=== PATIENT | female | born 1945 ===

== ENCOUNTER 2018-08-25 17:18 | Emergency (ER) | payer OTHER, BC, MEDICAID, MEDICARE ==
[2018-08-25 18:02] VITALS: RESP 18; O2SAT 97; BMI 23.2
[2018-08-25 18:27] LABS: BASO # 0.02 K/mm3 (0.0-2.0); BASO % 0.3 % (0.0-3.0); EOS # 0.2 (0.0-0.7); EOS % 2.5 % (1.5-5.0); HEMOGLOBIN 12.3 g/dL (12.0-16.0); LYMPH # 3.7 (1.2-3.4); LYMPH % 53.2 % (22.0-35.0); MEAN CELL VOLUME 86.7 fl (80.0-105.0); MEAN CORPUSCULAR HEMOGLOBIN 27.8 pg (25.0-35.0); MEAN PLATELET VOLUME 11.3 fl (7.0-11.0); MONO # 0.3 (0.1-0.6); MONO % 4.6 % (1.0-6.0); RBC 4.43 10^6/uL (3.5-6.1); RED CELL DISTRIBUTION WIDTH 12.9 % (11.5-14.5); WHITE BLOOD COUNT 6.9 10^3/uL (4.5-11.0)
[2018-08-25 18:37] LABS: ALB/GLOB RATIO 1.1 (1.1-1.8); ALBUMIN 4.1 g/dL (3.0-4.8); ALT/SGPT 19 U/L (7-56); AST/SGOT 23 U/L (14-36); BLOOD UREA NITROGEN 14 mg/dL (7-21); CALCIUM 9.9 mg/dL (8.4-10.5); GFR NON-AFRICAN AMERICAN > 60
[2018-08-25 18:38] LABS: ACETAMINOPHEN < 10.0 ug/ml (10.0-20.0); SALICYLATE < 1 mg/dL (2.0-20.0)
--- NOTE | 2018-08-25 18:48 | RAD ---
Date of service: 08/25/2018 HISTORY: PEs eval COMPARISON: No prior. FINDINGS: LUNGS: No active pulmonary disease. PLEURA: No significant pleural effusion identified, no pneumothorax apparent. CARDIOVASCULAR: No radiographic findings to suggest acute or significant cardiovascular disease. Incidental Finding(s): Postoperative changes related to sternotomy. Atherosclerotic calcifications identified primarily aortic arch. OSSEOUS STRUCTURES: No significant abnormalities. VISUALIZED UPPER ABDOMEN: Normal. OTHER FINDINGS: None. IMPRESSION: No active disease.
[2018-08-25 18:51] LABS: PH,URINE 6.5 (4.7-8.0); URINE APPEARANCE CLEAR (CLEAR); URINE BILIRUBIN NEGATIVE (NEGATIVE); URINE BLOOD NEGATIVE (NEGATIVE); URINE COLOR LIGHT YELLOW (YELLOW); URINE GLUCOSE (UA) NEGATIVE (NEGATIVE); URINE LEUKOCYTE ESTERASE SMALL Leu/uL (NEGATIVE); URINE PROTEIN NEGATIVE mg/dL (<30 mg/dL); URINE UROBILINOGEN 0.2 E.U./dL (<1 E.U./dL)
[2018-08-25 18:59] LABS: URINE EPITHELIAL CELLS 0 - 2 /hpf (0-5)
[2018-08-25 19:10] LABS: BARBITURATES, UR NEGATIVE (NEGATIVE); BENZODIAZEPINES, UR POSITIVE (NEGATIVE); OPIATES, UR NEGATIVE (NEGATIVE); PHENCYCLIDINE, UR NEGATIVE (NEGATIVE)
--- NOTE | 2018-08-25 19:11 | CARD ---
APPROVED REPORT Date of service: 08/25/2018 EKG Measurement Heart [id number] <Conclusion> Normal sinus rhythm Possible Left atrial enlargement Anteroseptal infarct, age undetermined T wave abnormality, consider lateral ischemia Abnormal ECG
--- NOTE | 2018-08-25 19:11 | ED PDOC ---
Arrival/HPI - General Chief Complaint: Psychiatric Evaluation Time Seen by Provider: 08/25/18 17:23 Historian: Patient - History of Present Illness Narrative History of Present Illness (Text): 08/25/18 19:08 73-year-old female presents today brought in by her [id number] for psychiatric evaluation. Her [id number] states that over the past month the patient has not been taking her medications as she should be and states she has been acting strange. She states that the patient lives alone and has been found wandering around her. Patient was seen by the psychiatrist today and was advised to come into the emergency room for psychiatric evaluation. The patient denies any complaints. She denies suicidal or homicidal ideation. No other complaints Past Medical History - Provider Review Nursing Documentation Reviewed: Yes - Infectious Disease Hx of Infectious Diseases: None - Cardiac Hx Cardiac Disorders: Yes Hx Hypertension: Yes - Pulmonary Hx Respiratory Disorders: No - Neurological Hx Neurological Disorder: No - HEENT Hx HEENT Disorder: No - Renal Hx Renal Disorder: No - Endocrine/Metabolic Hx Endocrine Disorders: Yes Hx Hypothyroidism: Yes - Hematological/Oncological Hx Blood Disorders: Yes Hx Anemia: Yes (IRON DEF ANEMIA) - Integumentary Hx Dermatological Disorder: No - Musculoskeletal/Rheumatological Hx Musculoskeletal Disorders: Yes Hx Arthritis: Yes Hx Fractures: Yes - Gastrointestinal Hx Gastrointestinal Disorders: No - Genitourinary/Gynecological Hx Genitourinary Disorders: Yes Hx Urinary Tract Infection: Yes - Psychiatric Hx Psychophysiologic Disorder: Yes Hx Depression: Yes Hx Substance Use: No - Surgical History Hx Coronary Artery Bypass Graft: Yes - Anesthesia Hx Anesthesia: Yes Hx Anesthesia Reactions: No Hx Malignant Hyperthermia: No - Suicidal Assessment Feels Threatened In Home Enviroment: No Family/Social History - Physician Review Nursing Documentation Reviewed: Yes Family/Social History: Unknown Family HX Smoking Status: Never Smoked Hx Alcohol Use: No Hx Substance Use: No Allergies/Home Meds Allergies/Adverse Reactions: Allergies dicyclomine [From Bentyl] Allergy (Severe, Verified 08/25/18 14:43) NAUSEA sulfamethoxazole [From Bactrim] Allergy (Severe, Verified 08/25/18 14:43) Hives Bactrim DS trimethoprim [From Bactrim] Allergy (Severe, Verified 08/25/18 14:43) Hives Bactrim DS green vegetables Allergy (Uncoded 08/25/18 17:28) RASH Home Medications: Home Meds Medication Instructions Recorded Confirmed Atorvastatin [Lipitor] 10 mg PO HS 11/26/16 08/25/18 Aspirin [Ecotrin] 81 mg PO DAILY 06/04/17 08/25/18 Carvedilol [Coreg] 6.25 mg PO BID 06/04/17 08/25/18 Clopidogrel [Plavix] 75 mg PO DAILY 08/25/18 08/25/18 Lisinopril [Zestril] 20 mg PO DAILY 08/25/18 08/25/18 Review of Systems - Review of Systems Constitutional: absent: Fatigue, Fevers Respiratory: absent: SOB, Cough Cardiovascular: absent: Chest Pain, Palpitations Gastrointestinal: absent: Abdominal Pain, Constipation, Diarrhea, Nausea, Vomiting Genitourinary Female: absent: Dysuria, Frequency, Hematuria Musculoskeletal: absent: Arthralgias, Back Pain, Neck Pain Skin: absent: Rash, Pruritis Neurological: absent: Headache, Dizziness Psychiatric: absent: Anxiety, Depression, Suicidal Ideation Physical Exam Vital Signs Reviewed: Yes Vital Signs Temp Pulse Resp BP Pulse Ox 08/25/18 17:26 98.2 F 61 18 165/89 H 97 Temperature: Afebrile Blood Pressure: Hypertensive Pulse: Regular Respiratory Rate: Normal Appearance: Positive for: Well-Appearing, Non-Toxic, Comfortable Pain Distress: None Mental Status: Positive for: other (alert x 2) - Systems Exam Head: Present: Atraumatic Mouth: Present: Moist Mucous Membranes Neck: Present: Normal Range of Motion Respiratory/Chest: Present: Clear to Auscultation, Good Air Exchange. No: Respiratory Distress, Accessory Muscle Use Cardiovascular: Present: Regular Rate and Rhythm, Normal S1, S2. No: Murmurs Abdomen: No: Tenderness, Distention, Peritoneal Signs, Rebound, Guarding Back: Present: Normal Inspection Upper Extremity: Present: Normal ROM Lower Extremity: Present: Normal ROM. No: Edema Neurological: Present: GCS=15, Speech Normal Skin: Present: Warm, Dry, Normal Color. No: Rashes Psychiatric: Present: Alert Medical Decision Making ED Course and Treatment: 08/25/18 19:12 Patient is nontoxic well-appearing in no distress vital signs are stable. CBC WNL CMP WNL Tylenol WNL Salicylate WNL Alcohol level WNL Urine drug screen + benzos UA; small leukocytes, 0-1 wbcs will follow urine culture. cxr: wnl ekg normal sinus rhythm at 60 bpm normal axis no ST elevations QTC 452 pt is medically cleared for PES evaluation Patient was seen and evaluated by PES screener: lauri Patient was cleared psychiatrically for discharge. Patient with dementia no power of transactional attorney on file unable to admit the patient to the hospital as the patient does not want to stay. She is alert and oriented. States she wants to go home. I spoke with the [id number] and advised her that we will contact her after the urine culture comes back we will not treat for UTI at this time.. Impression; dementia Follow-up with a primary care physician within the next 2 days Return immediately if symptoms worsen persist or if new concerning symptoms develop - Lab Interpretations Lab Results: Total Bilirubin 0.6 mg/dL (0.2-1.3) 08/25/18 18:15 AST 23 U/L (14-36) 08/25/18 18:15 ALT 19 U/L (7-56) 08/25/18 18:15 Alkaline Phosphatase 87 U/L (38-126) 08/25/18 18:15 Total Protein 7.8 g/dL (5.8-8.3) 08/25/18 18:15 Albumin 4.1 g/dL (3.0-4.8) 08/25/18 18:15 Globulin 3.6 gm/dL 08/25/18 18:15 Albumin/Globulin Ratio 1.1 (1.1-1.8) 08/25/18 18:15 Urine Color Light yellow (YELLOW) 08/25/18 18:40 Urine Appearance Clear (CLEAR) 08/25/18 18:40 Urine pH 6.5 (4.7-8.0) 08/25/18 18:40 Ur Specific [place] 1.010 (1.005-1.035) 08/25/18 18:40 Urine Protein Negative mg/dL (<30 mg/dL) 08/25/18 18:40 Urine Glucose (UA) Negative mg/dL (NEGATIVE) 08/25/18 18:40 Urine Ketones Negative mg/dL (NEGATIVE) 08/25/18 18:40 Urine Blood Negative (NEGATIVE) 08/25/18 18:40 Urine Nitrate Negative (NEGATIVE) 08/25/18 18:40 Urine Bilirubin Negative (NEGATIVE) 08/25/18 18:40 Urine Urobilinogen 0.2 E.U./dL (<1 E.U./dL) 08/25/18 18:40 Ur Leukocyte Esterase Small Jonel/uL (NEGATIVE) H 08/25/18 18:40 Urine RBC None /hpf (0-2) 08/25/18 18:40 Urine WBC 1 - 3 /hpf (0-6) 08/25/18 18:40 Ur Epithelial Cells 0 - 2 /hpf (0-5) 08/25/18 18:40 Urine Other Utrans /hpf 08/25/18 18:40 - RAD Interpretation Radiology Orders: 08/25/18 18:10 CHEST PORTABLE [RAD] Stat Disposition/Present on Arrival - Present on Arrival Any Indicators Present on Arrival: No History of DVT/PE: No History of Uncontrolled Diabetes: No Urinary Catheter: No History of Decub. Ulcer: No History Surgical Site Infection Following: None - Disposition Have Diagnosis and Disposition been Completed?: Yes Diagnosis: Dementia Disposition: HOME/ ROUTINE Disposition Time: 19:13 Patient Plan: Discharge Condition: GOOD Additional Instructions: Follow up with the primary care physician within the next 2 days return immediately if symptoms worsen,persist or if new symptoms develop. Referrals: Paz Norman MD [Primary Care Provider] - Follow up with primary Forms: [employer] (Mongolian)
[2018-08-25 22:05] VITALS: BP 156/80; PULSE 60; TEMP 98
== END 2018-08-25 20:10 | disposition home or self-care (01) ==
LOC: ED 17:18
DX: F03.90 Unspecified dementia, unspecified severity, without behavioral disturbance, psychotic disturbance, mood disturbance, and anxiety (principal); I10 Essential (primary) hypertension; E03.9 Hypothyroidism, unspecified; F32.9 Major depressive disorder, single episode, unspecified
CPT/HCPCS: 71045; 80053; 81001; 85025; 87086; 90791; 93005; 99283; G0480

== ENCOUNTER 2018-09-10 13:08 | Emergency (ER) | payer BC, MEDICAID, MEDICARE, OTHER ==
[2018-09-10 13:09] VITALS: BMI 28.1
--- NOTE | 2018-09-10 14:43 | ED PDOC ---
Arrival/HPI - General Chief Complaint: Psychiatric Evaluation Time Seen by Provider: 09/10/18 13:24 Historian: Patient - History of Present Illness Narrative History of Present Illness (Text): Fan Butt is a 73 year old female, with a past medical history of CABG, hypertension, a-fib on cardizem, dementia, and anxiety, sent to the emergency department by her psychiatrist for psychiatric evaluation. Per daughter, patient discontinued all medication except Xanax two weeks ago. Patient appreciates suicidal ideation and has been wandering. Daughter also notes decreased appetite. Patient denies constipation, nausea, vomiting, diarrhea. Denies vision changes. Denies fevers, chills, night sweats. Denies chest pain, shortness of breath, cough. Denies back pain, neck pain. Denies headache or dizziness. Denies dysuria, hematuria, or vaginal discharge. No other complaints. Psychiatrist: Dr. Trujillo Time/Duration: > week Symptom Course: Unchanged Activities at Onset: Light Context: Home Past Medical History - Provider Review Nursing Documentation Reviewed: Yes - Infectious Disease Hx of Infectious Diseases: None - Reproductive Menopause: Yes - Cardiac Hx Cardiac Disorders: Yes Hx Hypertension: Yes - Pulmonary Hx Respiratory Disorders: No - Neurological Hx Neurological Disorder: No - HEENT Hx HEENT Disorder: No - Renal Hx Renal Disorder: No - Endocrine/Metabolic Hx Endocrine Disorders: Yes Hx Hypothyroidism: Yes - Hematological/Oncological Hx Blood Disorders: Yes Hx Anemia: Yes (IRON DEF ANEMIA) - Integumentary Hx Dermatological Disorder: No - Musculoskeletal/Rheumatological Hx Musculoskeletal Disorders: Yes Hx Arthritis: Yes Hx Fractures: Yes - Gastrointestinal Hx Gastrointestinal Disorders: No - Genitourinary/Gynecological Hx Genitourinary Disorders: Yes Hx Urinary Tract Infection: Yes - Psychiatric Hx Psychophysiologic Disorder: Yes Hx Depression: Yes Hx Substance Use: No - Surgical History Hx Coronary Artery Bypass Graft: Yes - Anesthesia Hx Anesthesia: Yes Hx Anesthesia Reactions: No Hx Malignant Hyperthermia: No - Suicidal Assessment Feels Threatened In Home Enviroment: No Family/Social History - Physician Review Nursing Documentation Reviewed: Yes Family/Social History: Unknown Family HX Smoking Status: Never Smoked Hx Alcohol Use: No Hx Substance Use: No Allergies/Home Meds Allergies/Adverse Reactions: Allergies dicyclomine [From Bentyl] Allergy (Severe, Verified 08/25/18 14:43) NAUSEA sulfamethoxazole [From Bactrim] Allergy (Severe, Verified 08/25/18 14:43) Hives Bactrim DS trimethoprim [From Bactrim] Allergy (Severe, Verified 08/25/18 14:43) Hives Bactrim DS green vegetables Allergy (Uncoded 08/25/18 17:28) RASH Home Medications: Home Meds Medication Instructions Recorded Confirmed Atorvastatin [Lipitor] 10 mg PO HS 11/26/16 08/25/18 Aspirin [Ecotrin] 81 mg PO DAILY 06/04/17 08/25/18 Carvedilol [Coreg] 6.25 mg PO BID 06/04/17 08/25/18 Clopidogrel [Plavix] 75 mg PO DAILY 08/25/18 08/25/18 Lisinopril [Zestril] 20 mg PO DAILY 08/25/18 08/25/18 Review of Systems - Physician Review All systems were reviewed & negative as marked: Yes - Review of Systems Constitutional: absent: Fevers, Night Sweats, Other (chills) Eyes: absent: Vision Changes Respiratory: absent: SOB, Cough Cardiovascular: absent: Chest Pain Gastrointestinal: absent: Abdominal Pain, Diarrhea, Nausea, Vomiting, Appetite Changes Genitourinary Female: absent: Dysuria, Hematuria, Vaginal Discharge Musculoskeletal: absent: Back Pain, Neck Pain Neurological: absent: Headache, Dizziness Psychiatric: Suicidal Ideation, Other (Wandering) Physical Exam Vital Signs Reviewed: Yes Vital Signs Temp Pulse Resp BP Pulse Ox 09/10/18 14:18 99.5 F 62 18 151/74 H 98 Temperature: Afebrile Blood Pressure: Normal Pulse: Regular Respiratory Rate: Normal Appearance: Positive for: Well-Appearing, Non-Toxic, Comfortable Pain Distress: None Mental Status: Positive for: Alert and Oriented X 3 - Systems Exam Head: Present: Atraumatic, Normocephalic. No: Tenderness, Contusion, Swelling Pupils: Present: PERRL Extroacular Muscles: Present: EOMI Conjunctiva: Present: Normal Ears: Present: Normal, NORMAL TM. No: Erythema Mouth: Present: Moist Mucous Membranes. No: Dry Pharnyx: Present: Normal. No: ERYTHEMA, EXUDATE, TONSILS ENLARGED Nose (Internal): Present: Normal Inspection, No Active Bleeding Neck: Present: Normal Range of Motion. No: Meningeal Signs, MIDLINE TENDERNESS Respiratory/Chest: Present: Clear to Auscultation, Good Air Exchange. No: Respiratory Distress, Accessory Muscle Use, Wheezes, Rales, Rhonchi Cardiovascular: Present: Regular Rate and Rhythm, Normal S1, S2. No: Murmurs, Rub, Gallop Abdomen: Present: Normal Bowel Sounds, Rebound, Guarding. No: Tenderness, Distention, Peritoneal Signs Back: Present: Normal Inspection. No: CVA Tenderness, Midline Tenderness Upper Extremity: Present: Normal Inspection, Normal ROM, NORMAL PULSES, Neurovascularly Intact, Capillary Refill < 2s. No: Cyanosis, Edema Lower Extremity: Present: Normal Inspection, NORMAL PULSES, Normal ROM, Neurovascularly Intact, Capillary Refill < 2 s. No: Edema Neurological: Present: GCS=15, CN II-XII Intact, Speech Normal, Motor Func Grossly Intact, Normal Sensory Function Skin: Present: Warm, Dry, Normal Color. No: Rashes Psychiatric: Present: Alert, Oriented x 3, Normal Insight, Normal Concentration Medical Decision Making ED Course and Treatment: 09/10/18 13:24 Impression: Fan Butt is a 73 year old female, with a past medical history of CABG, a-fib on cardizem, dementia, and anxiety, sent to the emergency department by her psychiatrist for psychiatric evaluation. Pt in [facility], denies any current complaints. No meningeal signs, rash or signs of infection. No fall or trauma. At baseline mentation per family member bedside. No dark or bloody stool. No unilateral weakness or slurred speech. Plan: -- EKG -- Chest X-Ray -- Urinalysis -- Labs -- Reassess and disposition Prior Visits: Notes and results from previous visits were reviewed. Progress Notes: 09/10/18 15:21 Reviewed EKG, shows: NSR at 67 BPM. No STEMI. 09/10/18 16:22 No leukocytosis or CVAT labs largely unremarkable CXR unremarkable baseline neuro exam Mild UTI, RX Medically clear, pending PES 09/10/18 18:[address] Crawford pending PES dispo pt in [facility] - Scribe Statement The provider has reviewed the documentation as recorded by the Scribe Pankaj Llanes All medical record entries made by the Scribe were at my direction and personally dictated by me. I have reviewed the chart and agree that the record accurately reflects my personal performance of the history, physical exam, medical decision making, and the department course for this patient. I have also personally directed, reviewed, and agree with the discharge instructions and disposition. Disposition/Present on Arrival - Present on Arrival Any Indicators Present on Arrival: No History of DVT/PE: No History of Uncontrolled Diabetes: No Urinary Catheter: No History of Decub. Ulcer: No History Surgical Site Infection Following: None - Disposition Have Diagnosis and Disposition been Completed?: Yes Diagnosis: Encounter for psychological evaluation, UTI (urinary tract infection), Dementia Disposition: Transfer [facility] Disposition Time: 18:55 Patient Problems: Current Active Problems Problem Status Onset Dementia Acute Encounter for psychological evaluation Acute UTI (urinary tract infection) Acute Condition: STABLE Referrals: Paz Norman MD [Primary Care Provider] - Follow up with primary Forms: [email or web address] (Armenian)
--- NOTE | 2018-09-10 15:22 | RAD ---
Date of service: 09/10/2018 HISTORY: psych COMPARISON: 08/25/2018 TECHNIQUE: 1 view obtained. FINDINGS: LUNGS: No active pulmonary disease. PLEURA: No significant pleural effusion identified, no pneumothorax apparent. CARDIOVASCULAR: Aortic calcification Normal cardiac size. No pulmonary vascular congestion. OSSEOUS STRUCTURES: Sternal wires VISUALIZED UPPER ABDOMEN: Normal. OTHER FINDINGS: None. IMPRESSION: No active disease.
[2018-09-10 15:28] LABS: URINE BILIRUBIN NEGATIVE (NEGATIVE); URINE BLOOD NEGATIVE (NEGATIVE); URINE GLUCOSE (UA) NEGATIVE (NEGATIVE); URINE LEUKOCYTE ESTERASE SMALL Leu/uL (NEGATIVE); URINE PROTEIN NEGATIVE mg/dL (<30 mg/dL); URINE UROBILINOGEN 0.2 E.U./dL (<1 E.U./dL)
[2018-09-10 15:33] LABS: BASO # 0.02 K/mm3 (0.0-2.0); BASO % 0.3 % (0.0-3.0); EOS # 0.1 (0.0-0.7); EOS % 1.1 % (1.5-5.0); HEMOGLOBIN 12.3 g/dL (12.0-16.0); LYMPH # 3.4 (1.2-3.4); LYMPH % 47.4 % (22.0-35.0); MEAN CELL VOLUME 88.1 fl (80.0-105.0); MEAN CORPUSCULAR HEMOGLOBIN 27.7 pg (25.0-35.0); MEAN CORPUSCULAR HGB CONC 31.5 g/dl (31.0-37.0); MEAN PLATELET VOLUME 11.2 fl (7.0-11.0); MONO # 0.5 (0.1-0.6); MONO % 7.4 % (1.0-6.0); RBC 4.44 10^6/uL (3.5-6.1); RED CELL DISTRIBUTION WIDTH 13.1 % (11.5-14.5); WHITE BLOOD COUNT 7.2 10^3/uL (4.5-11.0)
[2018-09-10 15:34] LABS: URINE APPEARANCE CLEAR (CLEAR)
[2018-09-10 15:39] LABS: ALB/GLOB RATIO 1.3 (1.1-1.8); ALBUMIN 4.5 g/dL (3.0-4.8); ALT/SGPT 20 U/L (7-56); AST/SGOT 34 U/L (14-36); BLOOD UREA NITROGEN 11 mg/dL (7-21); CALCIUM 9.9 mg/dL (8.4-10.5); GFR NON-AFRICAN AMERICAN > 60
[2018-09-10 15:40] LABS: ACETAMINOPHEN < 10.0 ug/ml (10.0-20.0); SALICYLATE < 1 mg/dL (2.0-20.0)
[2018-09-10 16:20] LABS: BARBITURATES, UR NEGATIVE (NEGATIVE); BENZODIAZEPINES, UR POSITIVE (NEGATIVE); OPIATES, UR NEGATIVE (NEGATIVE); PHENCYCLIDINE, UR NEGATIVE (NEGATIVE)
--- NOTE | 2018-09-10 17:42 | CARD ---
APPROVED REPORT Date of service: 09/10/2018 EKG Measurement Heart [id number] <Conclusion> Normal sinus rhythm Possible Left atrial enlargement Left axis deviation Left ventricular hypertrophy Anteroseptal infarct, age undetermined T wave abnormality, consider lateral ischemia Abnormal ECG
--- NOTE | 2018-09-10 19:18 | ED PDOC ---
Physical Exam Vital Signs Temp Pulse Resp BP Pulse Ox 09/10/18 17:20 67 18 145/76 97 09/10/18 14:18 99.5 F 62 18 151/74 H 98 09/10/18 13:09 99.5 F 62 18 151/74 H 98 Medical Decision Making ED Course and Treatment: 09/10/18 19:10 Case endorsed to me by Dr. Borges for pending PES evaluation and final diagnosis. Patient is a 73 year old female, who presented to the ED earlier this morning for psychiatric evaluation. Patient has been medically cleared by the previous attending. Patient is currently resting in bed in no acute distress. Patient presents no new medical complaints. 09/10/18 20:40 Thor IBRAHIM glazier stained glass spoke with psychiatrist tavon. Patient will be screened by [facility]. Pending [facility] screening. 09/11/18 03:40 [facility] screen evaluated patient and reports patient will be transferred to [facility] for dementia. Transfer accepted by Dr. Blackwell. 09/11/18 07:05 Case signed out to Dr. Tonio Borges pending transfer to [facility] awaiting bed availability. - Lab Interpretations Lab Results: Total Bilirubin 0.5 mg/dL (0.2-1.3) 09/10/18 14:50 AST 34 U/L (14-36) 09/10/18 14:50 ALT 20 U/L (7-56) 09/10/18 14:50 Alkaline Phosphatase 76 U/L (38-126) 09/10/18 14:50 Total Protein 7.8 g/dL (5.8-8.3) 09/10/18 14:50 Albumin 4.5 g/dL (3.0-4.8) 09/10/18 14:50 Globulin 3.4 gm/dL 09/10/18 14:50 Albumin/Globulin Ratio 1.3 (1.1-1.8) 09/10/18 14:50 Urine Color yellow (YELLOW) 09/10/18 15:19 Urine Appearance Clear (CLEAR) 09/10/18 15:19 Urine pH 6.0 (4.7-8.0) 09/10/18 15:19 Ur Specific [place] 1.010 (1.005-1.035) 09/10/18 15:19 Urine Protein Negative mg/dL (<30 mg/dL) 09/10/18 15:19 Urine Glucose (UA) Negative mg/dL (NEGATIVE) 09/10/18 15:19 Urine Ketones Negative mg/dL (NEGATIVE) 09/10/18 15:19 Urine Blood Negative (NEGATIVE) 09/10/18 15:19 Urine Nitrate Negative (NEGATIVE) 09/10/18 15:19 Urine Bilirubin Negative (NEGATIVE) 09/10/18 15:19 Urine Urobilinogen 0.2 E.U./dL (<1 E.U./dL) 09/10/18 15:19 Ur Leukocyte Esterase Small Jonel/uL (NEGATIVE) H 09/10/18 15:19 Urine RBC TEST NOT PERFORMED 09/10/18 15:19 Urine WBC 10 - 15 /hpf (0-6) H 09/10/18 15:19 Ur Epithelial Cells 10 - 12 /hpf (0-5) H 09/10/18 15:19 - RAD Interpretation Radiology Orders: 09/10/18 14:49 CHEST PORTABLE [RAD] Stat - Medication Orders Current Medication Orders: Discontinued Medications Nitrofurantoin Macrocrystals (Macrobid) 100 mg PO ONCE ONE; Protocol Stop: 09/10/18 16:23 Last Admin: 09/10/18 17:17 Dose: 100 mg - Scribe Statement The provider has reviewed the documentation as recorded by the Scribe Yolanda Pereyra. All medical record entries made by the Scribe were at my direction and personally dictated by me. I have reviewed the chart and agree that the record accurately reflects my personal performance of the history, physical exam, medical decision making, and the department course for this patient. I have also personally directed, reviewed, and agree with the discharge instructions and disposition. Disposition/Present on Arrival - Present on Arrival Any Indicators Present on Arrival: No History of DVT/PE: No History of Uncontrolled Diabetes: No Urinary Catheter: No History of Decub. Ulcer: No History Surgical Site Infection Following: None - Disposition Have Diagnosis and Disposition been Completed?: Yes Diagnosis: Encounter for psychological evaluation, UTI (urinary tract infection), Dementia Disposition: Transfer [facility] Disposition Time: 07:00 Patient Problems: Current Active Problems Problem Status Onset Dementia Acute Encounter for psychological evaluation Acute UTI (urinary tract infection) Acute Condition: STABLE Referrals: Paz Norman MD [Primary Care Provider] - Follow up with primary Forms: [employer] (Portuguese)
--- NOTE | 2018-09-11 08:02 | ED PDOC ---
Physical Exam Vital Signs Reviewed: Yes Vital Signs Temp Pulse Resp BP Pulse Ox 09/11/18 06:12 98.3 F 69 18 107/65 96 09/11/18 02:05 98.1 F 70 18 166/82 H 95 09/10/18 21:15 98.6 F 68 18 166/72 H 98 09/10/18 17:20 67 18 145/76 97 09/10/18 14:18 99.5 F 62 18 151/74 H 98 09/10/18 13:09 99.5 F 62 18 151/74 H 98 Temperature: Afebrile Blood Pressure: Normal Pulse: Regular Respiratory Rate: Normal Appearance: Positive for: Non-Toxic, Comfortable Pain Distress: None Mental Status: Positive for: other (alert and oriented x 1) - Systems Exam Head: Present: Atraumatic, Normocephalic Pupils: Present: PERRL Extroacular Muscles: Present: EOMI Conjunctiva: Present: Normal Mouth: Present: Moist Mucous Membranes Neck: Present: Normal Range of Motion Respiratory/Chest: Present: Clear to Auscultation, Good Air Exchange. No: Respiratory Distress, Accessory Muscle Use, Wheezes, Rales, Rhonchi Cardiovascular: Present: Regular Rate and Rhythm, Normal S1, S2. No: Murmurs, Rub, Gallop Abdomen: Present: Normal Bowel Sounds, Rebound, Guarding. No: Tenderness, Distention, Peritoneal Signs Upper Extremity: Present: Normal Inspection. No: Cyanosis, Edema Lower Extremity: Present: Normal Inspection. No: Edema Neurological: Present: GCS=15, CN II-XII Intact, Speech Normal Skin: Present: Warm, Dry, Normal Color. No: Rashes Psychiatric: Present: Alert (alert and oriented x 1) Medical Decision Making ED Course and Treatment: 09/11/18 07:15 Case signed out to dc by Dr. Crawford. Patient was medically cleared, pending [facility] transport to [facility]. 09/11/18 18:49 Pt remains in NAD signed out to Dr. Crawford pending [facility] transfer - Lab Interpretations Lab Results: Total Bilirubin 0.5 mg/dL (0.2-1.3) 09/10/18 14:50 AST 34 U/L (14-36) 09/10/18 14:50 ALT 20 U/L (7-56) 09/10/18 14:50 Alkaline Phosphatase 76 U/L (38-126) 09/10/18 14:50 Total Protein 7.8 g/dL (5.8-8.3) 09/10/18 14:50 Albumin 4.5 g/dL (3.0-4.8) 09/10/18 14:50 Globulin 3.4 gm/dL 09/10/18 14:50 Albumin/Globulin Ratio 1.3 (1.1-1.8) 09/10/18 14:50 Urine Color yellow (YELLOW) 09/10/18 15:19 Urine Appearance Clear (CLEAR) 09/10/18 15:19 Urine pH 6.0 (4.7-8.0) 09/10/18 15:19 Ur Specific [place] 1.010 (1.005-1.035) 09/10/18 15:19 Urine Protein Negative mg/dL (<30 mg/dL) 09/10/18 15:19 Urine Glucose (UA) Negative mg/dL (NEGATIVE) 09/10/18 15:19 Urine Ketones Negative mg/dL (NEGATIVE) 09/10/18 15:19 Urine Blood Negative (NEGATIVE) 09/10/18 15:19 Urine Nitrate Negative (NEGATIVE) 09/10/18 15:19 Urine Bilirubin Negative (NEGATIVE) 09/10/18 15:19 Urine Urobilinogen 0.2 E.U./dL (<1 E.U./dL) 09/10/18 15:19 Ur Leukocyte Esterase Small Jonel/uL (NEGATIVE) H 09/10/18 15:19 Urine RBC TEST NOT PERFORMED 09/10/18 15:19 Urine WBC 10 - 15 /hpf (0-6) H 09/10/18 15:19 Ur Epithelial Cells 10 - 12 /hpf (0-5) H 09/10/18 15:19 - RAD Interpretation Radiology Orders: 09/10/18 14:49 CHEST PORTABLE [RAD] Stat - Medication Orders Current Medication Orders: Discontinued Medications Alprazolam (Xanax) 0.5 mg PO STAT STA; Protocol Stop: 09/11/18 04:04 Last Admin: 09/11/18 04:26 Dose: 0.5 mg Nitrofurantoin Macrocrystals (Macrobid) 100 mg PO ONCE ONE; Protocol Stop: 09/10/18 16:23 Last Admin: 09/10/18 17:17 Dose: 100 mg - Scribe Statement The provider has reviewed the documentation as recorded by the Froylan Hamilton Provider Reinieribe Attestation: All medical record entries made by the Reinieribe were at my direction and personally dictated by me. I have reviewed the chart and agree that the record accurately reflects my personal performance of the history, physical exam, medical decision making, and the department course for this patient. I have also personally directed, reviewed, and agree with the discharge instructions and disposition. Disposition/Present on Arrival - Present on Arrival Any Indicators Present on Arrival: No History of DVT/PE: No History of Uncontrolled Diabetes: No Urinary Catheter: No History of Decub. Ulcer: No History Surgical Site Infection Following: None - Disposition Have Diagnosis and Disposition been Completed?: Yes Diagnosis: Encounter for psychological evaluation, UTI (urinary tract infection), Dementia Disposition: Transfer [facility] Disposition Time: 18:50 Patient Problems: Current Active Problems Problem Status Onset Dementia Acute Encounter for psychological evaluation Acute UTI (urinary tract infection) Acute Condition: STABLE Referrals: Paz Norman MD [Primary Care Provider] - Follow up with primary Forms: [employer] ([place]rian)
--- NOTE | 2018-09-11 21:11 | ED PDOC ---
Physical Exam Vital Signs Reviewed: Yes Vital Signs Temp Pulse Resp BP Pulse Ox 09/11/18 19:15 65 16 115/64 95 09/11/18 11:17 53 L 16 157/76 H 97 09/11/18 06:12 98.3 F 69 18 107/65 96 09/11/18 02:05 98.1 F 70 18 166/82 H 95 09/10/18 21:15 98.6 F 68 18 166/72 H 98 09/10/18 17:20 67 18 145/76 97 09/10/18 14:18 99.5 F 62 18 151/74 H 98 09/10/18 13:09 99.5 F 62 18 151/74 H 98 Temperature: Afebrile Blood Pressure: Hypertensive Pulse: Regular Respiratory Rate: Normal Medical Decision Making ED Course and Treatment: 09/11/18 19:00 Case endorsed to me by Dr. Borges, patient is a 73 year old female presenting to the emergency for psychiatric evaluation pending transfer. 09/12/18 00:22 Informed that patient has a bed secured in [facility] [place] [place] and will be soon transferred. - Lab Interpretations Microbiology Results: Microbiology Results 09/10/18 16:35 Urine,Clean Catch Urine Culture - Final Gram Negative Ezekiel Lab Results: Total Bilirubin 0.5 mg/dL (0.2-1.3) 09/10/18 14:50 AST 34 U/L (14-36) 09/10/18 14:50 ALT 20 U/L (7-56) 09/10/18 14:50 Alkaline Phosphatase 76 U/L (38-126) 09/10/18 14:50 Total Protein 7.8 g/dL (5.8-8.3) 09/10/18 14:50 Albumin 4.5 g/dL (3.0-4.8) 09/10/18 14:50 Globulin 3.4 gm/dL 09/10/18 14:50 Albumin/Globulin Ratio 1.3 (1.1-1.8) 09/10/18 14:50 Urine Color yellow (YELLOW) 09/10/18 15:19 Urine Appearance Clear (CLEAR) 09/10/18 15:19 Urine pH 6.0 (4.7-8.0) 09/10/18 15:19 Ur Specific [place] 1.010 (1.005-1.035) 09/10/18 15:19 Urine Protein Negative mg/dL (<30 mg/dL) 09/10/18 15:19 Urine Glucose (UA) Negative mg/dL (NEGATIVE) 09/10/18 15:19 Urine Ketones Negative mg/dL (NEGATIVE) 09/10/18 15:19 Urine Blood Negative (NEGATIVE) 09/10/18 15:19 Urine Nitrate Negative (NEGATIVE) 09/10/18 15:19 Urine Bilirubin Negative (NEGATIVE) 09/10/18 15:19 Urine Urobilinogen 0.2 E.U./dL (<1 E.U./dL) 09/10/18 15:19 Ur Leukocyte Esterase Small Jonel/uL (NEGATIVE) H 09/10/18 15:19 Urine RBC TEST NOT PERFORMED 09/10/18 15:19 Urine WBC 10 - 15 /hpf (0-6) H 09/10/18 15:19 Ur Epithelial Cells 10 - 12 /hpf (0-5) H 09/10/18 15:19 - RAD Interpretation Radiology Orders: 09/10/18 14:49 CHEST PORTABLE [RAD] Stat - Medication Orders Current Medication Orders: Alprazolam (Xanax) 0.5 mg PO TID THONG; Protocol Last Admin: 09/11/18 13:39 Dose: 0.5 mg Mirtazapine (Remeron) 15 mg PO HS THONG Quetiapine Fumarate (Seroquel) 25 mg PO HS THONG; Protocol Discontinued Medications Alprazolam (Xanax) 0.5 mg PO STAT STA; Protocol Stop: 09/11/18 04:04 Last Admin: 09/11/18 04:26 Dose: 0.5 mg Nitrofurantoin Macrocrystals (Macrobid) 100 mg PO ONCE ONE; Protocol Stop: 09/10/18 16:23 Last Admin: 09/10/18 17:17 Dose: 100 mg Disposition/Present on Arrival - Present on Arrival Any Indicators Present on Arrival: No History of DVT/PE: No History of Uncontrolled Diabetes: No Urinary Catheter: No History of Decub. Ulcer: No History Surgical Site Infection Following: None - Disposition Have Diagnosis and Disposition been Completed?: Yes Diagnosis: Encounter for psychological evaluation, Dementia Disposition: Transfer [facility] [place] [place] Disposition Time: 02:24 Patient Plan: Transfer To ([facility] [place] [place]) Patient Problems: Current Active Problems Problem Status Onset Dementia Acute Encounter for psychological evaluation Acute UTI (urinary tract infection) Acute Condition: STABLE Referrals: Paz Norman MD [Primary Care Provider] - Follow up with primary Forms: [employer]iu ([place])
--- NOTE | 2018-09-11 23:27 | CON ---
DATE OF CONSULTATION: 09/11/2018 HISTORY OF PRESENT ILLNESS: In short, the patient is a 73-year-old female with not known previous psychiatric history, most likely the patient has history of psychotic disorder and questionable dementia. The patient was brought by her [id number] for evaluation of bizarre behavior and depression and possible suicidal ideation after being seeing a local psychiatrist, Dr. Douglas. The patient overnight refused to sign into the psychiatric inpatient unit, but presented to be psychotic, depressed, and expressed suicidal ideation with a plan to jump off the black balcony. In [facility] screening was initiated, and the patient was screened overnight, was accepted, and at present moment, the patient is waiting for bed to be available at [facility]. The patient was seen and examined today at the morning time in the emergency room, PAS room. The patient presented to be alert, but guarded, flat affect. The patient is not eating. The patient said that anxiety is bothering her, that is why she cannot eat. The patient expressed no interest to be admitted to the psychiatric inpatient unit and was giving angry looks at this principal technical writer. Based on the history, the patient was noncompliant with the medications. The patient had hallucinations and paranoia. The patient believes that her next-door neighbor is spying on her, and the patient's neighbor is masturbating in front of her, and the patient was thinking to end on her life or jumping off the bile balcony. This principal technical writer contacted the patient's outpatient psychiatrist, Dr. Douglas, who mentioned that he inherited this patient from Dr. Francisco Esparza, who is tele-psychiatrist. The patient was on Xanax 0.5 mg three times a day, Aricept 5 mg at the nighttime, Remeron 30 mg at the nighttime, and Paxil 40 mg daily, but compliance is very questionable. PHYSICAL EXAMINATION: VITAL SIGNS: Reviewed. Temperature 98.3, pulse is 53, blood pressure 157/76, respirations 16, oxygen saturation is 97. MEDICATIONS: Reviewed. Xanax was given to the patient and Macrobid. LABORATORY DATA: Labs reviewed. Hematology reviewed. Chemistry reviewed. Urinalysis reviewed. Toxicology was positive for benzodiazepines, but the patient was prescribed Xanax. MENTAL STATUS EXAMINATION: The patient presented to be alert. The patient knows that she is in the hospital, but was not aware what is to date. Mood described as miserable. Affect was flat and angry. Mood congruent. Thought process was concrete. Thought content, the patient is guarded and paranoid. As per report, the patient was seeing things and hearing things. Also, the patient feels that her neighbors are spying on her, and the patient expressed thoughts of harming herself by jumping of the balcony. Insight and judgment seemed to be very poor. Impulses are unpredictable. IMPRESSION: Psychosis not otherwise specified, rule out major depressive disorder with psychosis, rule out dementia with behavioral disturbances, rule out delirium. PLAN: The patient is waiting for bed to be available at [facility]. Meanwhile, we will resume Remeron, Xanax, and Paxil with smaller doses because the patient most likely was noncompliant with the medications. At present moment, the patient will be in the emergency room till transferred to the psychiatric inpatient unit at [facility]. Thank you very much for letting me participate in the care of your patient. Should you have any questions give me a call back. Cecily Garcia MD
[2018-09-12 00:35] VITALS: O2SAT 100
[2018-09-12 00:48] VITALS: RESP 18; TEMP 98.2
[2018-09-12 02:51] VITALS: BP 130/85; PULSE 60
== END 2018-09-12 02:30 | disposition short-term general hospital (02) ==
LOC: ED 13:08
DX: Z00.8 Encounter for other general examination (principal); F03.90 Unspecified dementia, unspecified severity, without behavioral disturbance, psychotic disturbance, mood disturbance, and anxiety; N39.0 Urinary tract infection, site not specified; I10 Essential (primary) hypertension
CPT/HCPCS: 71045; 80053; 81001; 83735; 85025; 87086; 90791; 93005; 99285; G0480